=== PATIENT | female | born 1955 | race Caucasian/White ===

== ENCOUNTER 2019-01-05 18:38 | Emergency (ER) | payer OTHER ==
[~2019-01-05] VITALS: Ht 149.9 cm; Wt 74.4 kg
[2019-01-05] MEDS ORDERED: ASPI81TA85 PO (18:45)
[2019-01-05] MEDS ORDERED: MECL-86 PO (18:46)
[2019-01-05] MEDS ORDERED: PEPC1TAB5 PO (18:48)
[2019-01-05] MEDS ORDERED: KETOROLAC 60 MG/2 ML VIAL (J1885) IM ONE (19:30)
[2019-01-05 19:34] VITALS: BP 149/79
[2019-01-05] MEDS ORDERED: NAPR-837 PO (19:56)
== END 2019-01-05 20:15 | disposition home or self-care (01) ==
LOC: M ED 18:38
DX: S46.819A Strain of other muscles, fascia and tendons at shoulder and upper arm level, unspecified arm, initial encounter (principal); V49.40XA Driver injured in collision with unspecified motor vehicles in traffic accident, initial encounter; Z79.899 Other long term (current) drug therapy; Z79.82 Long term (current) use of aspirin; Z88.0 Allergy status to penicillin; Z88.5 Allergy status to narcotic agent
CPT/HCPCS: 96372; 99283; J1885

== ENCOUNTER 2020-08-03 19:33 | Emergency (ER) | payer OTHER ==
[~2020-08-03] VITALS: Ht 149.9 cm; Wt 81.8 kg
[~2020-08-03 19:33] MED LIST: ASPI81TA86 PO; MECL-86 PO; NAPR-837 PO; PEPC1TAB5 PO
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
[2020-08-03 21:16] VITALS: BP 141/66
--- NOTE | 2020-08-05 10:08 | ED PDOC ---
Post-Departure Follow-Up certified letter sent to patient pertaining to radiology report Roseline Renteria MD Aug 05, 2020 10:08
== END 2020-08-03 22:18 | disposition home or self-care (01) ==
LOC: M ED 19:33
DX: Z04.1 Encounter for examination and observation following transport accident (principal); Z88.0 Allergy status to penicillin; Z88.6 Allergy status to analgesic agent